=== PATIENT | male | born 1970 | race African-American/Black ===

== ENCOUNTER 2017-09-22 18:45 | Emergency (ER) | payer SELFPAY ==
[~2017-09-22] VITALS: Ht 170.2 cm; Wt 64.0 kg
[2017-09-22 18:47] VITALS: BP 124/91
== END 2017-09-23 01:20 | disposition left against medical advice (07) ==
LOC: ER 18:45
DX: R05 Cough (principal); Z53.21 Procedure and treatment not carried out due to patient leaving prior to being seen by health care provider

== ENCOUNTER 2022-05-22 05:48 | Emergency (ER) | payer OTHER ==
[~2022-05-22] VITALS: Ht 167.6 cm; Wt 61.1 kg
[2022-05-22 06:12] VITALS: BP 124/94
[2022-05-22] MEDS ORDERED: IBUPROFEN 600MG TABLET PO ONE (07:00)
[2022-05-22] MEDS ORDERED: IBUP-2029 MT (08:42)
== END 2022-05-22 08:55 | disposition home or self-care (01) ==
LOC: ER 05:48
DX: R07.89 Other chest pain (principal); F12.10 Cannabis abuse, uncomplicated
CPT/HCPCS: 71046; 99283